=== PATIENT | male | born 1955 | race Caucasian/White ===

== ENCOUNTER 2021-07-29 07:40 | Outpatient (CLI) | payer MEDICARE ==
[2021-07-29 10:00] LABS: Hemoglobin 13.6 g/dL (13.5-17.5); Mean Corpuscular HGB CONC 33.7 g/dL (32.0-36.0); Mean Corpuscular Hemoglobin 32.2 pg (27.0-33.0); Mean Corpuscular Volume 95.5 fl (81.2-95.1); Mean Platelet Volume 10.6 fl (7.4-10.4); Platelet Count 264 10x3/uL (150-450); RBC Distribution Width 12.3 % (11.5-14.5); Red Blood Cell (RBC) Count 4.22 10x6/uL (4.32-5.72); White Blood Cell (WBC) Count 5.2 10x3/uL (3.5-10.5)
[2021-07-29 10:18] LABS: INR-International Normal Ratio 0.9; PTT 23.3 sec (22.0-33.0); Prothrombin Time 10.5 sec (9.5-12.1)
[2021-07-29 10:37] LABS: Anion Gap 14 mmol/L (10-20); BUN (Urea Nitrogen) 21 mg/dL (8.4-25.7); Calc. Creatinine Clearance 0 mL/min (70-130); Calcium 10.2 mg/dL (7.8-10.44); Carbon Dioxide 27 mmol/L (23-31); Chloride 102 mmol/L (98-107); Glucose 98 mg/dL (80-115); Potassium 4.9 mmol/L (3.5-5.1); Sodium 138 mmol/L (136-145)
[2021-07-29 19:29] LABS: SARS-CoV-2 PCR by NAA Not Detected (NotDetected)
== END 2021-07-29 07:41 | disposition home or self-care (01) ==
LOC: LABBT 07:40
PROVIDERS: ATTEND Internal Medicine Cardiovascular Disease
DX: Z01.812 Encounter for preprocedural laboratory examination (principal); Z20.822 Contact with and (suspected) exposure to COVID-19
CPT/HCPCS: 80048; 85027; 85610; 85730; U0003; U0005

== ENCOUNTER 2021-08-03 09:33 | Day surgery (SDC) | payer MEDICARE ==
[2021-07-30 12:07] VITALS: BMI 27.9
[2021-08-03] MEDS ORDERED: Isoproterenol 0.2 MG/1 ML AMP ONE (09:40)
[2021-08-03] MEDS ORDERED: Heparin 10,000 UNITS/ 10 ML VIAL ONE (09:40)
[2021-08-03] MEDS ORDERED: Heparin 25,000 units/D5W 500 ML ONE (09:40)
[2021-08-03] MEDS ORDERED: Lidocaine 1% PF 5 ML VIAL ONE (09:57)
[2021-08-03] MEDS ORDERED: Ondansetron PF 4 MG/2 ML Vial ONE (09:57)
[2021-08-03] MEDS ORDERED: Midazolam HCl 2 mg/2 ml Vial ONE (09:58)
[2021-08-03] MEDS ORDERED: Fentanyl 100 MCG/2 ML VIAL ONE ×2 (09:58→12:29)
[2021-08-03] MEDS ORDERED: PROPOFOL 40 ML ONE (12:04)
[2021-08-03] MEDS ORDERED: Propofol 1,000 MG/100 ML VIAL IV ONE (12:29)
[2021-08-03] MEDS ORDERED: Protamine Sulfate 50 MG/5 ML VIAL ONE (13:25)
== END 2021-08-03 19:07 | disposition home or self-care (01) ==
LOC: SDC 09:33
PROVIDERS: ATTEND Internal Medicine Cardiovascular Disease
PROC: B244ZZZ Ultrasonography of Right Heart (ICD-10-PCS; principal; 2021-08-03)
PROC: 02583ZZ Destruction of Conduction Mechanism, Percutaneous Approach (ICD-10-PCS; 2021-08-03)
PROC: 02K83ZZ Map Conduction Mechanism, Percutaneous Approach (ICD-10-PCS; 2021-08-03)
PROC: 4A023FZ Measurement of Cardiac Rhythm, Percutaneous Approach (ICD-10-PCS; 2021-08-03)
PROC: 4A0234Z Measurement of Cardiac Electrical Activity, Percutaneous Approach (ICD-10-PCS; 2021-08-03)
DX: I49.3 Ventricular premature depolarization (principal); I42.9 Cardiomyopathy, unspecified; I47.2 Ventricular tachycardia; I08.3 Combined rheumatic disorders of mitral, aortic and tricuspid valves; E78.5 Hyperlipidemia, unspecified; G47.33 Obstructive sleep apnea (adult) (pediatric); M19.90 Unspecified osteoarthritis, unspecified site; I11.0 Hypertensive heart disease with heart failure; I50.9 Heart failure, unspecified; Z87.891 Personal history of nicotine dependence; Z79.82 Long term (current) use of aspirin; Z79.899 Other long term (current) drug therapy; Z88.0 Allergy status to penicillin
CPT/HCPCS: 76942; 85347; 93005; 93623; 93654; 93662; C1732; C1759; C1894; J1644; J2250; J2405; J2704; J2720; J3010